=== PATIENT | male | born 1995 | race Caucasian/White ===

== ENCOUNTER 2018-06-21 11:04 | Emergency (ER) | payer OTHER ==
[~2018-06-21] VITALS: Ht 182.9 cm; Wt 70.4 kg
[2018-06-21 11:13] VITALS: BP 113/65
== END 2018-06-21 12:39 | disposition home or self-care (01) ==
LOC: ED 12:30
DX: S83.92XA Sprain of unspecified site of left knee, initial encounter (principal); X58.XXXA Exposure to other specified factors, initial encounter; Y93.39 Activity, other involving climbing, rappelling and jumping off; Y92.89 Other specified places as the place of occurrence of the external cause; Y99.8 Other external cause status
CPT/HCPCS: 29505; 99283